=== PATIENT | male | born 1990 | race Caucasian/White ===

== ENCOUNTER 2016-04-24 13:33 | Outpatient (CLI) | payer BC, OTHER | END 2016-04-24 13:34 | disposition home or self-care (01) | DX: Z00.00 Encounter for general adult medical examination without abnormal findings (principal) ==

== ENCOUNTER 2019-01-26 08:00 | Outpatient (CLI) | payer BC, OTHER ==
--- NOTE | 2019-01-26 14:22 | XRAY Report ---
Reason: SHORTNESS OF BREATH Procedure Date: 01/26/2019 Accession Number: [id number] / [id number] Procedure: [facility] - Chest 2 View X-Ray CPT Code: 34310 FULL RESULT: EXAM: CHEST RADIOGRAPHY EXAM DATE: 01/26/2019 09:10 AM. CLINICAL HISTORY: SHORTNESS OF BREATH. COMPARISON: None. TECHNIQUE: 2 views. FINDINGS: Lungs/Pleura: No focal opacities evident. No pleural effusion. No pneumothorax. Normal volumes. Mediastinum: Heart and mediastinal contours are unremarkable. Other: Unremarkable bony structures. IMPRESSION: Normal 2-view chest radiography. [facility]
== END 2019-01-26 23:59 | disposition home or self-care (01) ==
LOC: DI.WCP 08:00
PROVIDERS: ATTEND Physician Assistant
DX: R06.02 Shortness of breath (principal)
CPT/HCPCS: 71046